=== PATIENT | female | born 1945 | race Two or more races ===

== ENCOUNTER 2016-08-26 07:53 | Day surgery (SDC) | payer OTHER ==
[2016-08-23 12:29] VITALS: BMI 24.7
[2016-08-26] MEDS ORDERED: PROPOFOL 20 ML ONE ×2 (07:55)
[2016-08-26 10:35] VITALS: BP 132/78; PULSE 71; TEMP 97.8
--- NOTE | 2016-08-27 11:40 | PATH ---
Surgical Pathology Report Patient Name: ELIZABETH CHANG [facility]. Rec. #: [id number] /Age/Gender: 1945 (Age: 71) / F Account: [id number] [facility] Taken: 08/26/2016 Received: 08/26/2016 Reported: 08/27/2016 Physicians: Dennis Ennis M.D. Specimen(s) Received A: BX PROXIMAL TRANSVERSE COLON B: BX RIGHT COLON C: BX RECTUM Clinical History Change in bowel habits, diarrhea, history of colonic polyps Colonic polyps, rule out microscopic colitis Final Diagnosis A. COLON, PROXIMAL TRANSVERSE, BIOPSY: TUBULAR ADENOMA. B. COLON, RIGHT, BIOPSY: TUBULAR ADENOMA. C. RECTUM, BIOPSY: COLONIC MUCOSA WITH NO PATHOLOGIC CHANGES. NO ACTIVE COLITIS, ARCHITECTURAL DISTORTION, GRANULOMATA, OR DYSPLASIA IDENTIFIED. NO MICROSCOPIC COLITIS IDENTIFIED (NO LYMPHOCYTIC OR COLLAGENOUS COLITIS IDENTIFIED). Electronically Signed Sukhdev Clifford M.D. Gross Description A. Received in formalin, labeled "proximal transverse colon" is a rob, irregular portion of soft tissue measuring 0.3 cm. in greatest dimension. The specimen is submitted in toto in one cassette. B. Received in formalin, labeled "right colon" is a rob, irregular portion of soft tissue measuring 0.3 cm. in greatest dimension. The specimen is submitted in toto in one cassette. C. Received in formalin, labeled "rectum" are 3 rob, irregular portions of soft tissue ranging from 0.2-0.4 cm. in greatest dimension. The specimens are submitted in toto in one cassette. 08/26/2016 saudi08/26/2016
== END 2016-08-26 10:37 | disposition home or self-care (01) ==
LOC: FASU-ENDO 07:53
PROVIDERS: ATTEND Internal Medicine Gastroenterology
PROC: 0DBK8ZX Excision of Ascending Colon, Via Natural or Artificial Opening Endoscopic, Diagnostic (ICD-10-PCS; principal; 2016-08-26 08:34)
PROC: 0DBL8ZX Excision of Transverse Colon, Via Natural or Artificial Opening Endoscopic, Diagnostic (ICD-10-PCS; 2016-08-26 08:34)
PROC: 0DBP8ZX Excision of Rectum, Via Natural or Artificial Opening Endoscopic, Diagnostic (ICD-10-PCS; 2016-08-26 08:34)
DX: Z86.010 Personal history of colon polyps (principal); D12.3 Benign neoplasm of transverse colon; D12.2 Benign neoplasm of ascending colon
CPT/HCPCS: 88305-TC